=== PATIENT | male | born 1990 | race Caucasian/White ===

== ENCOUNTER 2025-10-03 22:30 | Emergency (ER) | payer SELFPAY ==
[2025-10-03 22:31] VITALS: BMI 30.8
--- NOTE | 2025-10-03 22:32 | EKG_ITS ---
[facility] Test Date: 2025-10-03 Pat Name: NICK ESPINOSA Department: Room: - Gender: Male [employer]: : 1990 Requested By: Yunier Thakkar Order Number: [id number] Reading MD: Yunier Thakkar Measurements Intervals [place] Rate: 68 P: 51 NC: 140 QRS: 44 QRSD: 106 T: 42 QT: 383 QTc: 408 Interpretive Statements SINUS RHYTHM WITH SINUS ARRHYTHMIA Compared to ECG 08/18/2018 17:15:09 Short NC interval no longer present /store/S0/[id number].pdf
[2025-10-03 22:42] VITALS: BP 156/101; PULSE 66; RESP 18; TEMP 37.2; O2SAT 97
--- NOTE | 2025-10-03 22:54 | PD.EDRME ---
Rapid Medical Screening Exam RME Arrival date/time: 10/03/25 22:30 35M with history of psych/drug use, as well as possible TIA, though nothing on imaging, presents to ED with several hours of intermittent CP and SOB, though none now. Patient is very concerned about his BP. Chief Complaint: Chest Pain Vital signs: Vital Signs Temperature 98.9 F 10/03/25 22:42 Pulse Rate 66 10/03/25 22:42 Respiratory Rate 18 10/03/25 22:42 Blood Pressure 156/101 H 10/03/25 22:42 Pulse Oximetry (%) 97 10/03/25 22:42 Oxygen Delivery Method Room Air 10/03/25 22:42 Exam: Anxious. Clear lungs. Clinical Impression: anxiety vs drug/alcohol use vs PE
== END 2025-10-03 22:59 | disposition left against medical advice (07) ==
LOC: SERX 23:05
PROVIDERS: Emergency Provider Emergency Medicine
DX: R07.9 Chest pain, unspecified (principal); R06.02 Shortness of breath; Z53.29 Procedure and treatment not carried out because of patient's decision for other reasons
CPT/HCPCS: 80053; 80307; 81001; 84484; 85025; 93005; 99281